=== PATIENT | male | born 1995 | race Caucasian/White ===

== ENCOUNTER 2016-10-30 12:44 | Emergency (ER) | payer BC ==
[2016-10-30 14:07] VITALS: BP 153/80
--- NOTE | 2016-10-30 14:07 | EDM.PDOC ---
ED HPI Trauma - General Chief Complaint: Lower Extremity Injury/Pain Stated Complaint: LEFT LEG PAIN Time Seen by Provider: 10/30/16 13:57 - History of Present Illness INITIAL COMMENTS - FREE TEXT/NARRATIVE: 21-year-old male presents emergency room after falling off a roof. He complains of left lower leg discomfort and right elbow and forearm pain he has no other specific complaints at this time. Patient did not hit his head there was no loss of consciousness he denies any head pain or neck pain. Patient has not have any breathing difficulties denies any chest pain no shortness of breath. Initially he denies any abdominal pain. He has pain below his left knee none in the femur he has pain in his right forearm and elbow. Past medical history is unremarkable, medications: None, allergies: None He is not aware of having a tetanus shot he suspects his last one was between high school and [employer] high. Allergies/ADRs: Allergies No Known Allergies Allergy (Verified 10/30/16 13:56) Home Medications: Ambulatory Orders . [No Known Home Meds] 10/30/16 [Confirmed 10/30/16] Review of Systems - Review of Systems Review Of Systems: See Below Constitutional: Reports: no symptoms Eyes: Reports: no symptoms Ears: Reports: no symptoms Nose: Reports: no symptoms Mouth/Throat: Reports: no symptoms Respiratory: Reports: No Symptoms Cardiovascular: Reports: no symptoms GI/Abdominal: Reports: No symptoms Genitourinary: Reports: no symptoms Musculoskeletal: Reports: arm pain, leg pain Skin: Reports: no symptoms Neurological: Reports: No Symptoms Psychiatric: Reports: no symptoms Trauma Exam - Physical Exam Exam: See Below Exam Limited By: No limitations General Appearance: Reports: alert, no apparent distress Head: Reports: atraumatic, normocephalic. Denies: scalp lacerations, scalp abrasions, scalp ecchymosis, Baig's Sign Eyes: bilateral eye: EOMI, normal inspection, PERRL Ears: Reports: normal external exam, normal canal, hearing grossly normal, normal TMs Nose: Reports: normal inspection, normal mucousa, no blood Throat/Mouth: Reports: Normal inspection, Normal lips, Normal teeth, Normal gums , Normal oropharynx, Normal voice, No airway compromise Neck: Reports: non-tender, full range of motion, normal alignment, normal inspection, other (Monik CFareed collar on at the time initial evaluation I did remove the c-collar and the patient demonstrated pain-free range of motion both active and passive). Denies: painful range of motion, paraspinous muscle tender , spinous processes tender, stiff neck, tenderness, tender midline Respiratory Exam: Reports: no respiratory distress, lungs clear, normal breath sounds, no accessory muscle use, chest non-tender GI/Abdominal: Reports: normal bowel sounds, soft, no organomegaly, other ( Patient has a mild tenderness with palpation) Back: Reports: full range of motion, normal inspection, non-tender. Denies: CVA tenderness (R), CVA tenderness (L), paraspinal tenderness, vertebral tenderness Extremities: Reports: pelvis stable, pain with movement (Right arm), other (Is abrasions over his right forearm and left lower leg no obvious deformity neurovascular status of all 4 extremities is normal no snuffbox discomfort). Denies: pedal edema Neurologic: Reports: production consultant II-XII nml as tested, no motor/sensory deficits, alert , normal mood/affect, oriented x 3 Skin: Reports: Normal color, Warm/dry - [place] Coma Score Best Eye Response ([place]): (4) open spontaneously Best Verbal Response (Juan F): (5) oriented Best Motor Response (Juan F): (6) obeys commands Course - Vital Signs Last Recorded V/S: Last Vital Signs Temp 37.6 C 10/30/16 13:57 Pulse 89 10/30/16 13:57 Resp 16 10/30/16 13:57 BP 153/80 H 10/30/16 13:57 Pulse Ox 98 10/30/16 13:57 - Orders/Labs/Meds Orders: Active Orders 24 hr Category Date Time Status Vaccines to be Administered [RC] PER UNIT ROUTINE Care 10/30/16 14:28 Active Abdomen Pelvis w Cont [CT] Stat Exams 10/30/16 14:18 Taken Elbow Min 3V Rt [CR] Stat Exams 10/30/16 14:19 Taken Forearm 2V Rt [CR] Stat Exams 10/30/16 14:19 Taken Knee 3V Lt [CR] Stat Exams 10/30/16 14:19 Taken Tibia Fibula Lt [CR] Stat Exams 10/30/16 14:19 Taken Sodium Chloride 0.9% [Saline Flush] Med 10/30/16 15:44 Active 10 ml FLUSH ONETIME PRN Medication Orders Sodium Chloride (Saline Flush) 10 ml FLUSH ONETIME PRN PRN Reason: IV FLUSH Last Admin: 10/30/16 15:48 Dose: 10 ml Labs: Laboratory Tests 10/30/16 10/30/16 10/30/16 Range/Units 14:23 14:23 15:28 WBC 8.98 (4.23-9.07) K/mm3 RBC 5.19 (4.63-6.08) M/mm3 Hgb 15.7 (13.7-17.5) gm/L Hct 46.6 (40.1-51.0) % MCV 89.8 (79.0-92.2) fl MCH 30.3 (25.7-32.2) pg MCHC 33.7 (32.2-35.5) g/dl RDW Std Deviation 43.2 (35.1-43.9) fL Plt Count 337 (163-337) K/mm3 MPV 9.5 (9.4-12.3) fl Neutrophils % (Manual) 80 H (40-60) % Band Neutrophils % 0 (0-10) % Lymphocytes % (Manual) 13 L (20-40) % Atypical Lymphs % 0 % Monocytes % (Manual) 7 (2-10) % Eosinophils % (Manual) 0 L (0.8-7.0) % Basophils % (Manual) 0 L (0.2-1.2) Platelet Estimate Adequate Plt Morphology Comment Normal RBC Morph Comment Normal Sodium 141 (136-145) mEq/L Potassium 3.5 (3.5-5.1) mEq/L Chloride 104 (98-107) mEq/L Carbon Dioxide 25 (21-32) mEq/L Anion Gap 15.5 H (5-15) BUN 19 H (7-18) mg/dL Creatinine 0.8 (0.7-1.3) mg/dL Est Cr Clr Drug Dosing 133.60 mL/min Estimated GFR (MDRD) > 60 (>60) mL/min BUN/Creatinine Ratio 23.8 H (14-18) Glucose 98 (74-106) mg/dL Calcium 9.4 (8.5-10.1) mg/dL Total Bilirubin 1.6 H (0.2-1.0) mg/dL AST 20 (15-37) U/L ALT 21 (16-63) U/L Alkaline Phosphatase 65 (46-116) U/L Total Protein 7.5 (6.4-8.2) g/dl Albumin 5.1 H (3.4-5.0) g/dl Globulin 2.4 gm/dL Albumin/Globulin Ratio 2.1 H (1-2) Urine Color Light yellow (Yellow) Urine Appearance Clear (Clear) Urine pH 6.0 (5.0-8.0) Ur Specific [place] 1.020 (1.005-1.030) Urine Protein Negative (Negative) Urine Glucose (UA) Negative (Negative) Urine Ketones Trace H (Negative) Urine Occult Blood Negative (Negative) Urine Nitrite Negative (Negative) Urine Bilirubin Negative (Negative) Urine Urobilinogen 0.2 (0.2-1.0) Ur Leukocyte Esterase Negative (Negative) Urine RBC 0-5 (0-5) /hpf Urine WBC 0-5 (0-5) /hpf Ur Epithelial Cells 0-5 (0-5) /hpf Urine Bacteria Rare (FEW) /hpf Urine Mucus Not seen (FEW) /hpf Meds: Medications Generic Name Dose Route Start Last Admin Trade Name Frenimo PRN Reason Stop Dose Admin Sodium Chloride 10 ml 10/30/16 15:44 10/30/16 15:48 Saline Flush FLUSH 10 ml ONETIME PRN Administration IV FLUSH Discontinued Medications Generic Name Dose Route Start Last Admin Trade Name Freq PRN Reason Stop Dose Admin Diatrizoate Meglum/Diatrizoate Sod 90 ml 10/30/16 15:44 10/30/16 15:47 Gastrografin 37% PO 10/30/16 15:45 90 ml ONETIME ONE Administration Diphtheria/Tetanus/Acell Pertussis 0.5 ml 10/30/16 14:28 10/30/16 14:58 Boostrix IM 10/30/16 14:29 0.5 ml .ONCE ONE Administration Lactated Ringer's 1,000 mls @ 999 mls/hr 10/30/16 14:17 10/30/16 14:31 Ringers, Lactated IV 10/30/16 15:17 999 mls/hr .BOLUS ONE Administration Iopamidol 100 ml 10/30/16 15:44 10/30/16 15:48 Isovue-300 (61%) IVPUSH 10/30/16 15:45 100 ml ONETIME ONE Administration - Re-Assessments/Exams Free Text/Narrative Re-Assessment/Exam: 10/30/16 15:02 laboratory evaluation shows that he is a little on the dry side. CBC is fairly normal segmented neutrophils slightly increased.. X-ray examination shows a normal knee and lower leg on the left forearm is normal on the right elbow shows a questionable fracture posterior olecranon. Urinalysis and CT pending 10/30/16 15:34 Patient is going over for CT now. 10/30/16 16:[address] unremarkable, it should be noted that his pain was present with palpation only. Patient is doing okay we will ambulate him to ensure that he is doing all right otherwise work up is done. Departure - Departure Time of Disposition: 16:11 Disposition: Home, Self-Care 01 Clinical Impression: Fall, Contusion of right forearm, Contusion of left lower leg, Abrasions of multiple sites Forms: ED Department Discharge Additional Instructions: Return to the emergency room with any questions or problems. Followup in the hospital clinic if needed on Tuesday or Tuesday. You are probably going to be more sore tomorrow than you are today. Use ibuprofen or Aleve for the discomfort take with food. Eat a light diet for the next 12 hours then advance as tolerated. - My Orders Last 24 Hours: My Active Orders 10/30/16 14:18 Abdomen Pelvis w Cont [CT] Stat 10/30/16 14:19 Elbow Min 3V Rt [CR] Stat Forearm 2V Rt [CR] Stat Knee 3V Lt [CR] Stat Tibia Fibula Lt [CR] Stat 10/30/16 14:28 Vaccines to be Administered [RC] PER UNIT ROUTINE 10/30/16 15:44 Sodium Chloride 0.9% [Saline Flush] 10 ml FLUSH ONETIME PRN - Assessment/Plan Last 24 Hours: My Active Orders 10/30/16 14:18 Abdomen Pelvis w Cont [CT] Stat 10/30/16 14:19 Elbow Min 3V Rt [CR] Stat Forearm 2V Rt [CR] Stat Knee 3V Lt [CR] Stat Tibia Fibula Lt [CR] Stat 10/30/16 14:28 Vaccines to be Administered [RC] PER UNIT ROUTINE 10/30/16 15:44 Sodium Chloride 0.9% [Saline Flush] 10 ml FLUSH ONETIME PRN
[2016-10-30] MEDS ORDERED: Lactated Ringers 1,000 ML IV ONE (14:17)
[2016-10-30] MEDS ORDERED: Diphtheria,Pertussis(Acell),Tetanus Vaccine 0.5 ML SDV inactive IM ONE (14:28)
[2016-10-30] MEDS ORDERED: Iopamidol 612 MG/ML 100 ML Bottle IVPUSH ONE (15:44)
[2016-10-30] MEDS ORDERED: Sodium Chloride 0.9% 10 ML Syringe FLUSH PRN (15:44)
[2016-10-30] MEDS ORDERED: Diatrizoate Meglumine/Diatrizoate Sodium 37% 120 ML Bottle PO ONE (15:44)
--- NOTE | 2016-10-31 11:59 | CR ---
Right elbow: Four views of the right elbow were obtained. Small calcification is identified off the proximal olecranon process which is well-corticated and old. Joint spaces are preserved. No joint effusion is seen. No acute fracture or other bony abnormality is identified. Impression: 1. Small well-corticated bony density off the olecranon process which is felt to be incidental. 2. Right elbow study is otherwise unremarkable. Diagnostic code #2
--- NOTE | 2016-10-31 11:59 | CR ---
Right forearm: Two views of the right forearm were obtained. No fracture or other bony abnormality is seen. Impression: 1. No abnormality is identified on two-view right forearm study. Diagnostic code #1
--- NOTE | 2016-10-31 11:59 | CR ---
Left knee: Four views of the left knee were obtained. Comparison: No previous study. No joint effusion is seen. Medial and lateral joint spaces are maintained in height. No fracture or other bony abnormality is seen. Impression: 1. No abnormality is seen on this four-view left knee study. Diagnostic code #1
--- NOTE | 2016-10-31 11:59 | CR ---
Left tibia and fibula: Two views of the left tibia and fibula were obtained. Comparison: No previous study. No fracture or other bony abnormality is seen. Impression: 1. No abnormality is identified on two-view left tibia and fibula study. Diagnostic code #1
--- NOTE | 2016-10-31 12:19 | CT ---
CT abdomen and pelvis Technique: Multiple axial sections were obtained from above the dome of the diaphragm inferiorly through the pubic symphysis. Intravenous and oral contrast was utilized. Delayed images were obtained through the bladder. Comparison: No previous CT exam is available. Findings: Visualized lung bases are clear. Liver and spleen show no focal parenchymal abnormality. Adrenal glands are within normal limits. Pancreas is also within normal limits. Symmetric contrast enhancement is identified within both kidneys. Aorta shows no aneurysmal dilatation. Gallbladder shows no calcified gallstones. No retroperitoneal adenopathy or mesenteric abnormalities are noted. No pelvic mass or adenopathy is seen. Delayed images show contrast within the distal ureters and within the bladder. Mild increased stool noted within the colon. Bone window settings were reviewed which show no discrete osseous abnormality. Impression: 1. Mild increased stool throughout the colon. 2. No acute abnormality is identified on CT study of the abdomen and pelvis. Diagnostic code #2 I agree with preliminary report issued by [employer] (preliminary report dictated on 10/30/16, 5:04 PM Central Time)
== END 2016-10-30 16:24 | disposition home or self-care (01) ==
LOC: EDBD 12:44 → JD.ED 12:44
DX: S50.11XA Contusion of right forearm, initial encounter (principal); S80.12XA Contusion of left lower leg, initial encounter; Z23 Encounter for immunization; W17.89XA Other fall from one level to another, initial encounter
CPT/HCPCS: 36415; 73080; 73090; 73562; 73590; 74177; 80053; 81001; 85025; 90471; 96360; 99285; J7050; J7120; Q9963; Q9967; 90715; 99283